=== PATIENT | female | born 2000 | race Caucasian/White ===

== ENCOUNTER 2020-06-26 08:21 | Emergency (ER) | payer SELFPAY ==
[~2020-06-26] VITALS: Ht 167.6 cm; Wt 100.0 kg
[2020-06-26 08:31] VITALS: BP 124/108
[2020-06-26] MEDS ORDERED: AZIT250T PO (10:20)
== END 2020-06-26 11:13 | disposition home or self-care (01) ==
LOC: ER 08:21
DX: J11.1 Influenza due to unidentified influenza virus with other respiratory manifestations (principal); B34.9 Viral infection, unspecified; Z20.828 Contact with and (suspected) exposure to other viral communicable diseases; Z79.899 Other long term (current) drug therapy
CPT/HCPCS: 36415; 71045; 71046; 99283